=== PATIENT | female | born 1960 | race Caucasian/White ===

== ENCOUNTER 2020-05-18 21:58 | Inpatient (IN) | payer OTHER ==
[~2020-05-18] VITALS: Ht 149.9 cm; Wt 58.4 kg
--- NOTE | 2020-05-18 22:17 | NUR ---
LAB AT BEDSIDE FOR DRAW AT THIS TIME
[2020-05-18] MEDS ORDERED: ONDANSETRON 2MG/ML, 2ML ONE (22:19)
--- NOTE | 2020-05-18 22:24 | NUR ---
THIS IS A 60Y F THAT COMES IN FORN/V W/ ABD PAIN STARTING A FEW HOURS AGO. PT REPORTS VOMITING UPWARDS OF 50X'S AND BEING UNABLE TO CONTROL HER BOWELS. PT FOUND HYPOTENSIVE 60'S/40'S PER EMS, FLUIDS AND ZOFRAN GIVEN PUBLIC INTERVIEWER PT BP UPON ARRIVAL 97/70. PT CONNECTED TO ALL MONITORING. PT REPORTS IMPROVEMENT IN N/V BUT HAS CALF CRAMPS THAT COME ON VERY STRONG.
[2020-05-18] MEDS ORDERED: ONDANSETRON 2MG/ML, 2ML IVPush ONE (22:30)
[2020-05-18] MEDS ORDERED: SODIUM CHLORIDE 0.9% 1,000ML IVBOLUS ONE ×2 (22:30→23:00)
[2020-05-18] MEDS ORDERED: MORPHINE SULFATE 4 MG/ML, 1ML IVPush PRN (22:30)
[2020-05-18 22:38] LABS: MEAN CORPUSCULAR HEMOGLOBIN 31.8 pg (27.0-34.8); MEAN CORPUSCULAR HGB CONC 33.2 g/dL (32.4-35.8); MEAN CORPUSCULAR VOLUME 95.9 fL (80-100); PLATELET COUNT 258 x10^3/uL (130-400); RED BLOOD COUNT 4.52 x10^6/uL (3.82-5.3); RED CELL DISTRIBUTION WIDTH 14.3 % (9.6-15.2)
[2020-05-18 22:43] LABS: ALANINE AMINOTRANSFERASE 35 U/L (12-78); ALBUMIN 3.6 g/dL (3.4-5.0); ANION GAP 14 mmol/L (5-15); CALCIUM 8.7 mg/dL (8.5-10.1); CHLORIDE 112 mmol/L (98-107); CREATININE 1.15 mg/dL (0.55-1.02)
--- NOTE | 2020-05-18 22:46 | NUR ---
LATE ENTRY: DR. CABRERA AT [facility] W/ US DUE TO PT BP DECREASE. PER ERP HOLD MORPHINE UNTIL PRESSURE MORE STABLE
--- NOTE | 2020-05-18 22:46 | NUR ---
XRAY AT BEDSIDE
[2020-05-18 22:48] LABS: ALKALINE PHOSPHATASE 91 U/L (45-117); BILIRUBIN,TOTAL 0.4 mg/dL (0.2-1.0); TOTAL PROTEIN 6.7 g/dL (6.4-8.2); TROPONIN I < 0.015 ng/mL (0.000-0.045)
--- NOTE | 2020-05-18 22:50 | NUR ---
PT TO CT AT THIS TIME
[2020-05-18] MEDS ORDERED: PIPERACILLIN/TAZO/PMX 3.375GM 50 ML IV ONE (23:00)
[2020-05-18] MEDS ORDERED: VANCOMYCIN 1,400 MG in SODIUM CHLORIDE 0.9% 250 ML IV ONE (23:00)
[2020-05-18] MEDS ORDERED: VANCOMYCIN PER PHARMACY MC PRN (23:00)
[2020-05-18 23:05] LABS: MD YES
[2020-05-18 23:06] LABS: <PLATELET ESTIMATE> ADEQUATE; <PLT MORPHOLOGY> NORMAL PLT MORPH; <RBC MORPHOLOGY> NORMAL; BAND#(MANUAL) 1.19 x10^3/uL; BANDS%(MANUAL) 6 % (0-7); EOS% (MANUAL) 1 % (1-7); LYMPH#(MANUAL) 0.79 x10^3/uL (1-3.4); LYMPHS% (MANUAL) 4 % (22-44); MONOS% (MANUAL) 1 % (2-9); SEG#(MANUAL) 17.42 x10^3/uL (1.8-6.8); SEGS% (MANUAL) 88 % (42-75)
[2020-05-18] MEDS ORDERED: PIPERACILLIN/TAZO/PMX 3.375GM 50 ML ONE (23:10)
[2020-05-18] MEDS ORDERED: OMNIPAQUE 350 MG/ML, 100ML BOTTLE ONE (23:15)
--- NOTE | 2020-05-18 23:42 | NUR ---
PER DR CABRERA PT TO HAVE CULUTURES DRAWN ABX PAUSED UNTIL CULTURES DRAWN.
[2020-05-18] MEDS ORDERED: MORPHINE SULFATE 4 MG/ML, 1ML ONE (23:53)
--- NOTE | 2020-05-19 00:13 | NUR ---
LAB AT BEDSIDE FOR CULTURES. STR CATH PERFORMED PER POLICY.
[2020-05-19 00:39] LABS: MICROSCOPIC INDICATED
--- NOTE | 2020-05-19 01:19 | NUR ---
Break RN: Patient resting in [facility] with no complaints. ERP at bedside at this time.
--- NOTE | 2020-05-19 02:11 | NUR ---
PT UP TO [facility] STANDBY ASSIST. [place] U[place] POC NO NEEDS AT THIS TIME
[2020-05-19] MEDS ORDERED: PHARMACY MAY ADJ FOR RENAL FX MC SCH (03:00)
[2020-05-19] MEDS ORDERED: ONDANSETRON 2MG/ML, 2ML IV PRN (03:00)
[2020-05-19] MEDS ORDERED: DEXTROSE 4 GM TAB.CHEW PO PRN (03:00)
[2020-05-19] MEDS ORDERED: DOCUSATE 100 MG CAPSULE PO PRN (03:00)
[2020-05-19] MEDS ORDERED: morphine SULFATE 10 MG/ML, 1ML IV PRN ×2 (03:00→07:30)
[2020-05-19] MEDS ORDERED: HYDROcodone/APAP 5/325 TABLET PO PRN (03:00)
[2020-05-19] MEDS ORDERED: GLUCAGON 1 MG IM PRN (03:00)
[2020-05-19] MEDS ORDERED: ENOXAPARIN 40 MG/0.4 ML SQ SCH (03:00)
[2020-05-19] MEDS ORDERED: DEXTROSE 50%, 50ML SYRINGE IVPush PRN (03:00)
[2020-05-19] MEDS ORDERED: ZOLPIDEM 5MG TABLET PO PRN (03:00)
[2020-05-19] MEDS ORDERED: ACETAMINOPHEN 325 MG TABLET PO PRN ×2 (03:00→07:00)
[2020-05-19] MEDS ORDERED: VANCOMYCIN PER PHARMACY MC PRN (03:00)
--- NOTE | 2020-05-19 04:00 | NUR ---
PT PLACED ON HOSPITAL BED, STANDBY ASSIST. NO NEEDS AT THIS TIME
[2020-05-19] MEDS ORDERED: ENOXAPARIN 40 MG/0.4 ML ONE (06:02)
[2020-05-19] MEDS ORDERED: PIPERACILLIN/TAZO/PMX 3.375GM 50 ML ONE (06:45)
[2020-05-19] MEDS: PIPERACILLIN/TAZO/PMX 3.375GM 50 ML IV SCH ×3 (06:55→23:53)
[2020-05-19] MEDS ORDERED: OXYcodone IR 5MG TABLET PO PRN (07:00)
[2020-05-19 07:35] LABS: ANION GAP 13 mmol/L (5-15); CALCIUM 7.8 mg/dL (8.5-10.1); CHLORIDE 114 mmol/L (98-107); CREATININE 0.86 mg/dL (0.55-1.02)
[2020-05-19 07:40] LABS: BASOPHILS # (AUTO) 0.04 x10^3/uL (0-0.1); BASOPHILS % (AUTO) 0 % (0-1); EOSINOPHILS # (AUTO) 0.01 x10^3/uL (0-0.4); EOSINOPHILS % (AUTO) 0 % (1-7); HEMOGRAM NOTE RECHECKED; LYMPHOCYTES # (AUTO) 0.98 x10^3/uL (1-3.4); LYMPHOCYTES % (AUTO) 7 % (22-44); MD NO; MEAN CORPUSCULAR HEMOGLOBIN 31.6 pg (27.0-34.8); MEAN CORPUSCULAR HGB CONC 33.1 g/dL (32.4-35.8); MEAN CORPUSCULAR VOLUME 95.5 fL (80-100); MONOCYTES # (AUTO) 0.73 x10^3/uL (0.2-0.8); MONOCYTES % (AUTO) 5 % (2-9); NEUTROPHILS # (AUTO) 12.21 x10^3/uL (1.8-6.8); NEUTROPHILS % (AUTO) 87 % (42-75); PLATELET COUNT 235 x10^3/uL (130-400); RED BLOOD COUNT 3.84 x10^6/uL (3.82-5.3); RED CELL DISTRIBUTION WIDTH 14.3 % (9.6-15.2)
[2020-05-19] MEDS ORDERED: FLUOXETINE HCL 20 MG CAPSULE ONE (07:55)
--- NOTE | 2020-05-19 08:00 | NUR ---
PT AMBULATED TO BR, PT WITH STEADY GAIT, MEDICATED PER MAR. GIVEN ICE CHIPS PER MD DONOHUE. PT VSS. NAD NOTED, NO OTHER NEEDS EXPRESSED AT THIS TIME
[2020-05-19] MEDS: SODIUM CHLORIDE FLUSH 10ML SYR IVF SCH ×2 (08:04→21:16)
[2020-05-19] MEDS: LACTOBACILLUS CHEW TABLET PO SCH ×3 (08:04→21:15)
[2020-05-19] MEDS: SODIUM CHLORIDE 0.9% 1,000 ML IV SCH ×2 (08:07→23:54)
[2020-05-19] MEDS: FLUOXETINE HCL 20 MG CAPSULE PO SCH (08:07)
[2020-05-19] MEDS ORDERED: FAMOTIDINE 20 MG/2 ML IVPush SCH (09:00)
--- NOTE | 2020-05-19 10:24 | NUR ---
PT RESTING ON HOSPITAL BED AT THIS TIME, DENIES NEEDS, VSS
--- NOTE | 2020-05-19 13:11 | NUR ---
PT GIVEN BROTH AND JUICE, PT TOLERATING CLD AT THIS TIME.
[2020-05-19 14:58] VITALS: BP 113/55
[2020-05-19] MEDS ORDERED: FLUO40CA9 PO (15:27)
[2020-05-19] MEDS ORDERED: LISI-167 PO (15:29)
[2020-05-19 21:19] VITALS: BP 116/62
[2020-05-20 01:46] VITALS: BP 104/68
[2020-05-20 03:11] LABS: CLOSTRIDIUM DIFFICILE ANTIGEN NEGATIVE; CLOSTRIDIUM DIFFICILE TOXIN NEGATIVE (Negative)
[2020-05-20 06:10] LABS: BASOPHILS # (AUTO) 0.03 x10^3/uL (0-0.1); BASOPHILS % (AUTO) 0 % (0-1); EOSINOPHILS # (AUTO) 0.14 x10^3/uL (0-0.4); EOSINOPHILS % (AUTO) 2 % (1-7); LYMPHOCYTES % (AUTO) 17 % (22-44); MD NO; MEAN CORPUSCULAR HEMOGLOBIN 31.7 pg (27.0-34.8); MEAN CORPUSCULAR HGB CONC 33.1 g/dL (32.4-35.8); MEAN CORPUSCULAR VOLUME 95.8 fL (80-100); MEAN PLATELET VOLUME 8.1 fL (7.4-10.4); MONOCYTES % (AUTO) 6 % (2-9); NEUTROPHILS % (AUTO) 75 % (42-75); PLATELET COUNT 216 x10^3/uL (130-400); RED BLOOD COUNT 3.57 x10^6/uL (3.82-5.3); RED CELL DISTRIBUTION WIDTH 14.5 % (9.6-15.2)
[2020-05-20 06:16] LABS: ANION GAP 6 mmol/L (5-15); CALCIUM 8.6 mg/dL (8.5-10.1); CHLORIDE 117 mmol/L (98-107); CREATININE 0.65 mg/dL (0.55-1.02)
[2020-05-20] MEDS ORDERED: POTASSIUM CHLORIDE 20 MEQ TAB.ER.PRT PO ONE ×2 (07:00→10:00)
[2020-05-20] MEDS: PIPERACILLIN/TAZO/PMX 3.375GM 50 ML IV SCH ×3 (08:24→23:58)
[2020-05-20] MEDS: FLUOXETINE HCL 20 MG CAPSULE PO SCH (08:25)
[2020-05-20] MEDS: LACTOBACILLUS CHEW TABLET PO SCH ×3 (08:25→19:45)
[2020-05-20] MEDS: ENOXAPARIN 40 MG/0.4 ML SQ SCH (08:25)
[2020-05-20] MEDS: SODIUM CHLORIDE FLUSH 10ML SYR IVF SCH ×2 (08:28→19:44)
[2020-05-20 08:31] VITALS: BP 119/65
[2020-05-20 13:19] VITALS: BP 119/65
[2020-05-20] MEDS: SODIUM CHLORIDE 0.9% 1,000 ML IV SCH ×2 (16:35→23:58)
[2020-05-20 19:38] VITALS: BP 140/69
[2020-05-20] MEDS ORDERED: TEMAZEPAM 15 MG CAPSULE PO PRN (20:30)
[2020-05-21 00:01] VITALS: BP 102/56
[2020-05-21 06:55] VITALS: BP 137/71
[2020-05-21] MEDS ORDERED: SODIUM CHLORIDE 0.9% 1,000 ML IV SCH (07:00)
[2020-05-21] MEDS ORDERED: MELATONIN 5 MG TABLET PO PRN (08:30)
[2020-05-21] MEDS: SODIUM CHLORIDE 0.9% 1,000 ML IV SCH (08:37)
[2020-05-21] MEDS: FLUOXETINE HCL 20 MG CAPSULE PO SCH (08:38)
[2020-05-21] MEDS: ENOXAPARIN 40 MG/0.4 ML SQ SCH (08:38)
[2020-05-21] MEDS: PIPERACILLIN/TAZO/PMX 3.375GM 50 ML IV SCH ×3 (08:38→20:44)
[2020-05-21] MEDS: SODIUM CHLORIDE FLUSH 10ML SYR IVF SCH ×2 (08:38→20:42)
[2020-05-21] MEDS: LACTOBACILLUS CHEW TABLET PO SCH ×3 (08:38→20:42)
[2020-05-21 09:27] LABS: BASOPHILS # (AUTO) 0.02 x10^3/uL (0-0.1); BASOPHILS % (AUTO) 0 % (0-1); EOSINOPHILS # (AUTO) 0.09 x10^3/uL (0-0.4); EOSINOPHILS % (AUTO) 1 % (1-7); LYMPHOCYTES # (AUTO) 1.36 x10^3/uL (1-3.4); LYMPHOCYTES % (AUTO) 21 % (22-44); MD NO; MEAN CORPUSCULAR HEMOGLOBIN 30.8 pg (27.0-34.8); MEAN CORPUSCULAR HGB CONC 32.1 g/dL (32.4-35.8); MEAN CORPUSCULAR VOLUME 96.1 fL (80-100); MEAN PLATELET VOLUME 7.7 fL (7.4-10.4); MONOCYTES # (AUTO) 0.42 x10^3/uL (0.2-0.8); MONOCYTES % (AUTO) 7 % (2-9); NEUTROPHILS # (AUTO) 4.55 x10^3/uL (1.8-6.8); NEUTROPHILS % (AUTO) 71 % (42-75); PLATELET COUNT 219 x10^3/uL (130-400); RED BLOOD COUNT 3.66 x10^6/uL (3.82-5.3); RED CELL DISTRIBUTION WIDTH 14.4 % (9.6-15.2)
[2020-05-21 09:30] LABS: ANION GAP 5 mmol/L (5-15); CALCIUM 8.8 mg/dL (8.5-10.1); CHLORIDE 121 mmol/L (98-107)
[2020-05-21 12:24] VITALS: BP 132/73
[2020-05-21 20:13] VITALS: BP 129/68
[2020-05-22] MEDS: PIPERACILLIN/TAZO/PMX 3.375GM 50 ML IV SCH ×2 (02:54→08:24)
[2020-05-22 02:59] VITALS: BP 111/44
[2020-05-22] MEDS: LACTOBACILLUS CHEW TABLET PO SCH (08:04)
[2020-05-22] MEDS: FLUOXETINE HCL 20 MG CAPSULE PO SCH (08:04)
[2020-05-22] MEDS: ENOXAPARIN 40 MG/0.4 ML SQ SCH (08:05)
[2020-05-22] MEDS: SODIUM CHLORIDE FLUSH 10ML SYR IVF SCH (08:05)
[2020-05-22 08:06] VITALS: BP 133/77
[2020-05-22] MEDS ORDERED: CIPR250T27 PO (12:26)
[2020-05-22] MEDS ORDERED: ACID1TAB7 PO (12:26)
[2020-05-22] MEDS ORDERED: METR-90 PO (12:26)
== END 2020-05-22 14:40 | disposition home or self-care (01) | DRG 871 ==
LOC: ED 05-19 00:49 → EDIP 05-19 01:14 → 4NE 05-19 14:34
PROVIDERS: ADMIT Internal Medicine; ATTEND Hospitalist
DX: A41.9 Sepsis, unspecified organism (principal); R65.21 Severe sepsis with septic shock; N17.0 Acute kidney failure with tubular necrosis; K51.00 Ulcerative (chronic) pancolitis without complications; E87.2 Acidosis; E87.8 Other disorders of electrolyte and fluid balance, not elsewhere classified; G47.33 Obstructive sleep apnea (adult) (pediatric); I10 Essential (primary) hypertension; F32.9 Major depressive disorder, single episode, unspecified; R00.0 Tachycardia, unspecified; Z20.828 Contact with and (suspected) exposure to other viral communicable diseases; Z88.5 Allergy status to narcotic agent; Z83.3 Family history of diabetes mellitus; Z82.49 Family history of ischemic heart disease and other diseases of the circulatory system; Z80.51 Family history of malignant neoplasm of kidney; Z82.3 Family history of stroke
CPT/HCPCS: 36415; 71045; 74177; 80048; 80053; 81001; 83036; 83605; 83690; 84484; 85025; 87040; 87086; 87324; 87635; 93005; G0378; J1650; J2405; J2543; J3370; Q9967; J2270; J7030; J7050

== ENCOUNTER → 2021-04-05 | Outpatient (CLI) | payer OTHER ==
[~2021-04-05] MED LIST: ACID1TAB7 PO; CIPR250T27 PO; FLUO40CA9 PO; LISI-167 PO; METR-90 PO
== END | disposition home or self-care (01) ==
LOC: CVU 15:22
PROVIDERS: ATTEND Physician Assistant Medical
DX: R94.31 Abnormal electrocardiogram [ECG] [EKG] (principal); I45.10 Unspecified right bundle-branch block; R00.0 Tachycardia, unspecified; I10 Essential (primary) hypertension
CPT/HCPCS: 93306

== ENCOUNTER → 2021-05-06 | Outpatient (CLI) | payer OTHER ==
[~2021-05-06] MED LIST changes: +ALPR1TAB2 PO
== END | disposition home or self-care (01) ==
LOC: CFH 09:02
PROVIDERS: ATTEND Physician Assistant Medical
DX: Z12.31 Encounter for screening mammogram for malignant neoplasm of breast (principal); M51.36 Other intervertebral disc degeneration, lumbar region; M48.061 Spinal stenosis, lumbar region without neurogenic claudication
CPT/HCPCS: 72148; 77063; 77067